=== PATIENT | male | born 1960 ===

== ENCOUNTER 2017-11-27 06:40 | Day surgery (SDC) | payer OTHER ==
[~2017-11-27 06:40] MED LIST: COZAAR50 MG; GABAPENTIN100 MG; ORPH100T; [UNRECOGNIZED DRUG - OTHER] PO
[2017-11-27] MEDS ORDERED: NEURONTIN600 MG PO (13:27)
[2017-11-27] MEDS ORDERED: POLY119PG PO (13:27)
[2017-11-27] MEDS ORDERED: ULTRACET PO (13:27)
== END 2017-11-27 17:55 | disposition home or self-care (01) ==
LOC: CIR.AMB 06:40
DX: D17.6 Benign lipomatous neoplasm of spermatic cord (principal); K40.90 Unilateral inguinal hernia, without obstruction or gangrene, not specified as recurrent